=== PATIENT | female | born 1945 | race Caucasian/White ===

== ENCOUNTER 2022-08-24 18:00 | Inpatient (IN) | payer BC, MEDICARE ==
[2022-08-24] MEDS ORDERED: Ondansetron 4 MG/2 ML SDV IVPUSH PRN (19:31)
[2022-08-24] MEDS ORDERED: HYDROmorphone 0.5 MG/0.5 ML Syringe IVPUSH PRN (19:38)
[2022-08-24] MEDS ORDERED: Lactated Ringers 1,000 ML IV SCH (19:45)
[2022-08-24] MEDS ORDERED: ceFAZolin 2 GM in Sodium Chloride 0.9% 100 ML IV ONE (19:45)
[2022-08-24] MEDS ORDERED: Bupivacaine 0.5%/EPINEPHrine 1:200,000 50 ML MDV ONE (19:53)
[2022-08-24] MEDS ORDERED: Indocyanine Green 25 MG SDV ONE (19:53)
[2022-08-24] MEDS ORDERED: Glycopyrrolate 0.2 MG/ML 5 ML MDV ONE (19:57)
[2022-08-24] MEDS ORDERED: Dexamethasone 4 MG/ML SDV ONE (19:57)
[2022-08-24] MEDS ORDERED: fentaNYL 250 MCG/5 ML SDV ONE ×2 (19:57→21:36)
[2022-08-24] MEDS ORDERED: Neostigmine Methylsulfate 1 MG/ML 5 ML Syringe ONE (19:57)
[2022-08-24] MEDS ORDERED: Ondansetron 4 MG/2 ML SDV ONE (19:57)
[2022-08-24] MEDS ORDERED: Propofol 200 MG/20 ML SDV ONE (19:57)
[2022-08-24] MEDS ORDERED: Succinylcholine 200 MG/10 ML MDV ONE (19:57)
[2022-08-24] MEDS ORDERED: Rocuronium 50 MG/5 ML Vial ONE ×2 (19:57→22:42)
[2022-08-24] MEDS ORDERED: Thiamine 100 MG in Sodium Chloride 0.9% 100 ML IV SCH (20:15)
[2022-08-24] MEDS ORDERED: Albuterol 0.083% 2.5 MG/3 ML Neb Soln NEB PRN (20:15)
[2022-08-24] MEDS ORDERED: Folic Acid 50 MG/10 ML MDV IV SCH (20:15)
[2022-08-24] MEDS ORDERED: MVI, Adult with Vitamin K 10 ML in Sodium Chloride 0.9% 1,000 ML IV SCH ×2 (20:15)
[2022-08-24] MEDS: Pantoprazole 40 MG Vial IVPUSH SCH (20:19)
[2022-08-24 20:29] LABS: ESTIMATED GFR 90 mL/min (>60)
[2022-08-24] MEDS ORDERED: Sodium Chloride 0.9% 1,000 ML IV SCH (20:45)
[2022-08-24] MEDS ORDERED: MVI, Adult with Vitamin K 10 ML, Folic Acid 1 MG, Thiamine 100 MG in Sodium Chloride 0.... IV SCH ×8 (20:45→22:00)
[2022-08-24] MEDS ORDERED: Lactated Ringers 1,000 ML ONE (22:56)
[2022-08-24] MEDS ORDERED: Scopolamine 1.5 MG Transdermal Patch ONE (23:22)
[2022-08-24] MEDS ORDERED: HYDROmorphone/Normal Saline 6 MG/30 ML PCA Vial IV PRN (23:50)
[2022-08-24] MEDS ORDERED: Naloxone 0.4 MG/ML SDV IVPUSH PRN (23:50)
[2022-08-25] MEDS ORDERED: Ondansetron 4 MG/2 ML SDV IVPUSH ONE (01:02)
[2022-08-25] MEDS ORDERED: Prochlorperazine 10 MG/2 ML SDV IVPUSH ONE (01:48)
[2022-08-25] MEDS ORDERED: Scopolamine 1.5 MG Transdermal Patch TRDERM SCH (02:00)
[2022-08-25] MEDS ORDERED: Sodium Ferric Gluconate Cmplex 250 MG in Sodium Chloride 0.9% 100 ML IV ONE (08:00)
[2022-08-25] MEDS: Pantoprazole 40 MG Vial IVPUSH SCH (08:29)
[2022-08-25] MEDS: CHECK SCOPOLAMINE PATCH DAILY SCH (08:30)
[2022-08-25] MEDS ORDERED: cefTRIAXone 2 GM in Sodium Chloride 0.9% 50 ML IV SCH ×2 (11:00)
[2022-08-25] MEDS: Non-Formulary Medication 1 Each (Fluticasone Propion/Salmeterol [Advair 250-50 Diskus] 1 E INH SCH (11:26)
[2022-08-25] MEDS: Enoxaparin 40 MG/0.4 ML Syringe SUBCUT SCH (11:28)
[2022-08-25] MEDS: Dextrose 5%-Lactated Ringers 1,000 ML IV SCH ×2 (11:35→16:42)
[2022-08-25] MEDS ORDERED: Metoprolol Tartrate 5 MG/5 ML SDV IVPUSH ONE (12:32)
[2022-08-25] MEDS: MVI, Adult with Vitamin K 10 ML, Folic Acid 1 MG, Thiamine 100 MG in Sodium Chloride 0.... IV SCH ×4 (14:15)
[2022-08-25] MEDS ORDERED: Metoprolol Tartrate 5 MG/5 ML SDV IVPUSH STA (14:17)
[2022-08-25] MEDS ORDERED: Magnesium Sulfate/Water 2 GM in Premix Bag 1 BAG IV ONE (15:00)
[2022-08-25] MEDS ORDERED: Diltiazem 25 MG/5 ML SDV IVPUSH ONE (15:18)
[2022-08-25] MEDS ORDERED: Diltiazem 100 MG in Sodium Chloride 0.9% 100 ML IV SCH (15:30)
[2022-08-25] MEDS ORDERED: SODIUM CHLORIDE 0.9% IV SCH (18:00)
[2022-08-25] MEDS ORDERED: Ampicillin 500 MG in Sodium Chloride 0.9% 10 ML IV SCH (18:00)
[2022-08-25] MEDS ORDERED: AMPICILLIN IV SCH (18:00)
[2022-08-25] MEDS: Ampicillin 1 GM in Sodium Chloride 0.9% 50 ML IV SCH (19:28)
[2022-08-25] MEDS: Formoterol/Mometasone 100-5 MCG 8.8 GM Inhaler IH SCH (20:59)
[2022-08-25] MEDS: QUEtiapine 100 MG Tab PO SCH (21:00)
[2022-08-25] MEDS ORDERED: Zolpidem 5 MG Tab PO SCH (21:00)
[2022-08-25] MEDS: traZODone 50 MG Tab PO SCH (21:00)
[2022-08-25] MEDS ORDERED: SUVOREXANT 15 MG PO SCH (21:00)
[2022-08-26] MEDS: Dextrose 5%-Lactated Ringers 1,000 ML IV SCH (01:17)
[2022-08-26] MEDS: Ampicillin 1 GM in Sodium Chloride 0.9% 50 ML IV SCH ×4 (01:18→19:50)
[2022-08-26] MEDS ORDERED: Sodium Phosphate 15 mMole/5 ML SDV IV ONE (08:45)
[2022-08-26] MEDS: Potassium Chloride 10 MEQ in Premix Bag 1 BAG IV SCH ×4 (08:50→12:29)
[2022-08-26] MEDS: Enoxaparin 40 MG/0.4 ML Syringe SUBCUT SCH (09:29)
[2022-08-26] MEDS: Pantoprazole 40 MG Vial IVPUSH SCH (09:30)
[2022-08-26] MEDS: MVI, Adult with Vitamin K 10 ML, Folic Acid 1 MG, Thiamine 100 MG in Sodium Chloride 0.... IV SCH ×4 (09:35)
[2022-08-26] MEDS: busPIRone 5 MG Tab PO SCH (10:24)
[2022-08-26] MEDS: CHECK SCOPOLAMINE PATCH DAILY SCH (10:25)
[2022-08-26] MEDS: Formoterol/Mometasone 100-5 MCG 8.8 GM Inhaler IH SCH ×2 (11:40→20:34)
[2022-08-26] MEDS ORDERED: Sodium Phosphate 30 MMOLE in Sodium Chloride 0.9% 250 ML IV ONE ×4 (13:00)
[2022-08-26] MEDS: Non-Formulary Medication 1 Each (Fluticasone Propion/Salmeterol [Advair 250-50 Diskus] 1 E INH SCH (14:01)
[2022-08-26] MEDS: ESZOPICLONE 2 MG PO SCH (21:12)
[2022-08-26] MEDS: traZODone 50 MG Tab PO SCH (21:12)
[2022-08-26] MEDS: QUEtiapine 100 MG Tab PO SCH ×2 (21:12→22:33)
[2022-08-27] MEDS: Dextrose 5%-Lactated Ringers 1,000 ML IV SCH ×2 (01:57→19:13)
[2022-08-27] MEDS: Ampicillin 1 GM in Sodium Chloride 0.9% 50 ML IV SCH ×4 (01:57→19:18)
[2022-08-27] MEDS: Acetaminophen 325 MG Tab PO PRN ×3 (02:01→20:22)
[2022-08-27] MEDS: Potassium Chloride 10 MEQ in Premix Bag 1 BAG IV SCH ×5 (07:50→12:36)
[2022-08-27] MEDS: MVI, Adult with Vitamin K 10 ML, Folic Acid 1 MG, Thiamine 100 MG in Sodium Chloride 0.... IV SCH ×4 (08:23)
[2022-08-27] MEDS: Formoterol/Mometasone 100-5 MCG 8.8 GM Inhaler IH SCH ×2 (09:28→20:22)
[2022-08-27] MEDS: Non-Formulary Medication 1 Each (Fluticasone Propion/Salmeterol [Advair 250-50 Diskus] 1 E INH SCH (09:29)
[2022-08-27] MEDS: busPIRone 5 MG Tab PO SCH ×2 (09:39→20:26)
[2022-08-27] MEDS: CHECK SCOPOLAMINE PATCH DAILY SCH (09:40)
[2022-08-27] MEDS: Pantoprazole 40 MG Vial IVPUSH SCH (09:46)
[2022-08-27] MEDS ORDERED: oxyCODONE 5 MG Tab PO PRN (10:42)
[2022-08-27] MEDS: Enoxaparin 40 MG/0.4 ML Syringe SUBCUT SCH (14:08)
[2022-08-27] MEDS: ESZOPICLONE 2 MG PO SCH (20:23)
[2022-08-27] MEDS: Melatonin 3 MG Tab PO SCH (20:24)
[2022-08-27] MEDS: QUEtiapine 100 MG Tab PO SCH (20:25)
[2022-08-27] MEDS: traZODone 50 MG Tab PO SCH (20:25)
[2022-08-28] MEDS: Ampicillin 1 GM in Sodium Chloride 0.9% 50 ML IV SCH ×2 (01:38→08:03)
[2022-08-28] MEDS: Dextrose 5%-Lactated Ringers 1,000 ML IV SCH (01:38)
[2022-08-28 05:28] LABS: ESTIMATED GFR 97 mL/min (>60)
[2022-08-28] MEDS: busPIRone 5 MG Tab PO SCH ×2 (08:04→20:42)
[2022-08-28] MEDS: Formoterol/Mometasone 100-5 MCG 8.8 GM Inhaler IH SCH ×2 (08:05→20:44)
[2022-08-28] MEDS: MVI, Adult with Vitamin K 10 ML, Folic Acid 1 MG, Thiamine 100 MG in Sodium Chloride 0.... IV SCH ×4 (08:06)
[2022-08-28] MEDS: Pantoprazole 40 MG Vial IVPUSH SCH (08:06)
[2022-08-28] MEDS: Non-Formulary Medication 1 Each (Fluticasone Propion/Salmeterol [Advair 250-50 Diskus] 1 E INH SCH (08:14)
[2022-08-28] MEDS ORDERED: Metoprolol Tartrate 25 MG Tab PO SCH (09:15)
[2022-08-28] MEDS: Enoxaparin 40 MG/0.4 ML Syringe SUBCUT SCH (13:18)
[2022-08-28] MEDS: Amoxicillin 500 MG Cap PO SCH ×2 (13:18→20:42)
[2022-08-28] MEDS: Thiamine 100 MG Tab PO SCH (20:41)
[2022-08-28] MEDS: traZODone 50 MG Tab PO SCH (20:41)
[2022-08-28] MEDS: Folic Acid 1 MG Tab PO SCH (20:42)
[2022-08-28] MEDS: Melatonin 3 MG Tab PO SCH (20:42)
[2022-08-28] MEDS: Multivitamins with Iron Tab.Chew CHEW SCH (20:42)
[2022-08-28] MEDS: Metoprolol Tartrate 25 MG Tab PO SCH (20:43)
[2022-08-28] MEDS: QUEtiapine 100 MG Tab PO SCH (20:43)
[2022-08-28] MEDS: ESZOPICLONE 2 MG PO SCH (20:44)
[2022-08-28] MEDS ORDERED: Pantoprazole 40 MG Tab.CR PO SCH (21:00)
[2022-08-29] MEDS ORDERED: Magnesium Sulfate/Water 2 GM in Premix Bag 1 BAG IV ONE (08:00)
[2022-08-29] MEDS: Formoterol/Mometasone 100-5 MCG 8.8 GM Inhaler IH SCH ×2 (08:31→21:05)
[2022-08-29] MEDS: Non-Formulary Medication 1 Each (Fluticasone Propion/Salmeterol [Advair 250-50 Diskus] 1 E INH SCH (08:32)
[2022-08-29] MEDS ORDERED: Bisacodyl 10 MG Supp RECTAL ONE (09:00)
[2022-08-29] MEDS: Pantoprazole 40 MG Tab.CR PO SCH (10:04)
[2022-08-29] MEDS: Amoxicillin 500 MG Cap PO SCH ×3 (10:04→21:04)
[2022-08-29] MEDS: busPIRone 5 MG Tab PO SCH ×2 (10:04→21:05)
[2022-08-29] MEDS: Metoprolol Tartrate 25 MG Tab PO SCH (10:04)
[2022-08-29] MEDS ORDERED: Furosemide 40 MG/4 ML VIAL IVPUSH ONE (10:05)
[2022-08-29] MEDS ORDERED: Potassium Chloride 20 MEQ Tab.ER PO ONE (10:05)
[2022-08-29] MEDS ORDERED: Metoprolol Tartrate 25 MG Tab PO ONE (10:11)
[2022-08-29] MEDS: Enoxaparin 40 MG/0.4 ML Syringe SUBCUT SCH (14:15)
[2022-08-29] MEDS ORDERED: Diltiazem 180 MG Cap.CD PO ONE (17:05)
[2022-08-29] MEDS ORDERED: Diltiazem IR 30 MG Tab PO PRN (18:36)
[2022-08-29] MEDS ORDERED: Furosemide 20 MG/2 ML VIAL IVPUSH ONE (18:40)
[2022-08-29] MEDS: ESZOPICLONE 2 MG PO SCH (21:02)
[2022-08-29] MEDS: traZODone 50 MG Tab PO SCH (21:03)
[2022-08-29] MEDS: Thiamine 100 MG Tab PO SCH (21:03)
[2022-08-29] MEDS: Metoprolol Tartrate 50 MG Tab PO SCH (21:03)
[2022-08-29] MEDS: QUEtiapine 100 MG Tab PO SCH (21:03)
[2022-08-29] MEDS: Folic Acid 1 MG Tab PO SCH (21:04)
[2022-08-29] MEDS: Melatonin 3 MG Tab PO SCH (21:04)
[2022-08-29] MEDS: Multivitamins with Iron Tab.Chew CHEW SCH (21:05)
[2022-08-30] MEDS: Formoterol/Mometasone 100-5 MCG 8.8 GM Inhaler IH SCH ×2 (08:32→20:51)
[2022-08-30] MEDS: Non-Formulary Medication 1 Each (Fluticasone Propion/Salmeterol [Advair 250-50 Diskus] 1 E INH SCH (08:32)
[2022-08-30] MEDS: busPIRone 5 MG Tab PO SCH ×2 (08:41→20:50)
[2022-08-30] MEDS: Pantoprazole 40 MG Tab.CR PO SCH (08:41)
[2022-08-30] MEDS: Metoprolol Tartrate 50 MG Tab PO SCH ×2 (08:41→20:54)
[2022-08-30] MEDS: Enoxaparin 80 MG/0.8 ML Syringe SUBCUT SCH ×2 (08:42→20:49)
[2022-08-30] MEDS ORDERED: Furosemide 40 MG/4 ML VIAL IVPUSH ONE (14:30)
[2022-08-30] MEDS: Multivitamins with Iron Tab.Chew CHEW SCH (20:51)
[2022-08-30] MEDS: Folic Acid 1 MG Tab PO SCH (20:52)
[2022-08-30] MEDS: Melatonin 3 MG Tab PO SCH (20:54)
[2022-08-30] MEDS: ESZOPICLONE 2 MG PO SCH (20:56)
[2022-08-30] MEDS: QUEtiapine 100 MG Tab PO SCH (20:57)
[2022-08-30] MEDS: traZODone 50 MG Tab PO SCH (20:57)
[2022-08-30] MEDS: Thiamine 100 MG Tab PO SCH (20:58)
[2022-08-31] MEDS: Pantoprazole 40 MG Tab.CR PO SCH (08:12)
[2022-08-31] MEDS: Enoxaparin 80 MG/0.8 ML Syringe SUBCUT SCH (08:12)
[2022-08-31] MEDS: busPIRone 5 MG Tab PO SCH (08:13)
[2022-08-31] MEDS: Formoterol/Mometasone 100-5 MCG 8.8 GM Inhaler IH SCH (08:52)
[2022-08-31] MEDS ORDERED: Metoprolol Succinate 25 MG Tab.ER PO SCH (09:00)
[2022-09-02 15:12] LABS: VITAMIN E(ALPHA TOCOPHEROL) 10.4 mg/L (9.0-29.0); VITAMIN E(GAMMA TOCOPHEROL) 0.3 mg/L (0.5-4.9)
== END 2022-08-31 14:42 | disposition home or self-care (01) | DRG 329 ==
LOC: JP.MS 18:08 → JP.ICU 08-25 14:20 → JP.MS 08-27 16:06
PROVIDERS: ADMIT Student in an Organized Health Care Education/Training Program; ATTEND Student in an Organized Health Care Education/Training Program
PROC: 0DS80ZZ Reposition Small Intestine, Open Approach (ICD-10-PCS; principal; 2022-08-24)
PROC: 0DQV0ZZ Repair Mesentery, Open Approach (ICD-10-PCS; 2022-08-24)
PROC: 0DJV4ZZ Inspection of Mesentery, Percutaneous Endoscopic Approach (ICD-10-PCS; 2022-08-24)
PROC: 0WQF0ZZ Repair Abdominal Wall, Open Approach (ICD-10-PCS; 2022-08-24)
DX: K95.89 Other complications of other bariatric procedure (principal); K56.2 Volvulus; N30.00 Acute cystitis without hematuria; R44.3 Hallucinations, unspecified; K56.7 Ileus, unspecified; K91.89 Other postprocedural complications and disorders of digestive system; K43.9 Ventral hernia without obstruction or gangrene; K45.8 Other specified abdominal hernia without obstruction or gangrene; I48.91 Unspecified atrial fibrillation; E87.5 Hyperkalemia; J45.909 Unspecified asthma, uncomplicated; F32.A Depression, unspecified; E55.9 Vitamin D deficiency, unspecified; R41.0 Disorientation, unspecified; T44.3X5A Adverse effect of other parasympatholytics [anticholinergics and antimuscarinics] and spasmolytics, initial encounter; Z88.1 Allergy status to other antibiotic agents; Z88.5 Allergy status to narcotic agent; Z88.8 Allergy status to other drugs, medicaments and biological substances; Z90.49 Acquired absence of other specified parts of digestive tract; Z85.3 Personal history of malignant neoplasm of breast
CPT/HCPCS: 36415; 51798; 80048; 80053; 81001; 82306; 82607; 82728; 82947; 83550; 83605; 83735; 84100; 84207; 84425; 84443; 84446; 84590; 85018; 85025; 85027; 85610; 93005; 93010; 93306; 94640; 97110-GP; 97116-GP; 97163-GP; 97530-GP; 99232; 99233; 99238; A9270-GY; C9113; J0290; J0330; J0690; J0696; J0780; J1100; J1170; J1650; J1940; J2405; J2704; J2710; J2916; J3010; J3411; J3475; J3480; J3490; J7030; J7050; J7120; J7121